=== PATIENT | female | born 1990 | race African-American/Black ===

== ENCOUNTER 2023-01-26 08:03 | Outpatient (CLI) | payer OTHER ==
[2023-01-26 08:20] LABS: PLATELET COUNT 255 K/uL (152-353)
[2023-01-26 08:40] LABS: POTASSIUM 3.9 mmol/L (3.6-5.2)
== END 2023-01-26 19:00 ==
LOC: LABW 08:03
PROVIDERS: ATTEND Family Medicine
DX: R30.0 Dysuria (principal); Z83.3 Family history of diabetes mellitus; E78.49 Other hyperlipidemia; B37.31 Acute candidiasis of vulva and vagina; E66.01 Morbid (severe) obesity due to excess calories
CPT/HCPCS: 36415; 80053; 80061; 81002; 83036; 85027